=== PATIENT | male | born 1930 | race Caucasian/White ===

== ENCOUNTER 2018-03-03 09:09 | Inpatient (IN) | payer OTHER ==
[~2018-03-03] VITALS: Ht 172.7 cm; Wt 53.2 kg
[~2018-03-03 09:09] MED LIST: APRESOLINE50 MG PO; Apresoline PO; Catapres PO; DuoNeb IH; FOLIC ACID1 MG PO; Folvite PO; GLUCOTROL10 MG PO; Heparin Sodium SC; ISORDIL10 MG PO; LANTUS 3 M100 UNITS1 SC; LASIX20 MG PO; LASIX40 MG PO; LOPRESSOR50 MG PO; LOVASTATIN20 MG PO; Lasix PO; Levaquin PO; Lopressor PO; NEURONTIN100 MG PO; NORVASC10 MG PO; NORVASC5 MG PO; NOVOLOG PE100 UNITS/ SC; Neurontin PO; Norvasc PO; NovoLOG Pen 3 ml SC; PLAVIX75 MG PO; PRILOSEC20 MG PO; Plavix PO; Pravachol PO; Protonix PO; TYLENOL REGULA325 MG PO; VITAMIN B12-FO1 EACH PO; ZOLOFT25 MG PO; Zoloft PO
[2018-03-03 10:34] LABS: BASOPHIL (%) 0.3 % (0-1); EOSINOPHIL (%) 1.1 % (0-5); EOSINOPHIL COUNT 0.1 K/uL (0-0.3); HEMATOCRIT 30.4 % (38.0-50.0); HEMOGLOBIN 10.7 G/DL (12.5-16.6); IMMATURE GRANULOCYTE (%) 0.8 % (0.0-0.7); LYMPHOCYTE (%) 7.1 % (15-42); LYMPHOCYTE COUNT 0.8 K/uL (1.0-2.8); MCH 32.3 PG (29.0-34.0); MCHC 35.2 G/DL (30.0-36.0); MCV 91.8 FL (86-99); MONOCYTE (%) 4.9 % (3-12); MONOCYTE COUNT 0.6 K/uL (0-0.8); NEUTROPHIL (%) 85.8 % (45-76); NEUTROPHIL COUNT 9.7 K/uL (1.8-6.4); PLATELET COUNT 121 K/uL (156-360); RBC DIS.WIDTH-CV 12.2 % (11.8-14.6); RBC DIS.WIDTH-SD 41.2 % (39-53); RED BLOOD COUNT 3.31 M/uL (4.00-5.50); WHITE BLOOD COUNT 11.3 K/uL (4.1-10.2)
[2018-03-03 10:45] LABS: CHLORIDE 108 mEq/L (99-109); INTER. NORMALIZED RATIO 1.1; POTASSIUM 4.7 mEq/L (3.7-5.4); SODIUM 139 mEq/L (136-147)
[2018-03-03 10:47] LABS: GLUCOSE 324 mg/dL (70-99)
[2018-03-03 10:51] LABS: CREATININE 1.8 mg/dL (0.6-1.3); GFR ESTIMATE (CALCULATED) 38 mL/min/ (58.99-99999)
[2018-03-03 10:52] LABS: UREA NITROGEN (BUN) 37 mg/dL (9-23)
[2018-03-03] MEDS ORDERED: PRECOSE100 MG PO (16:30)
[2018-03-03] MEDS ORDERED: VITAMIN C500 M6 PO (16:31)
[2018-03-03] MEDS ORDERED: VITAMIN D31000 UNI2 PO (16:34)
[2018-03-03] MEDS ORDERED: CALCIUM 500 MG1 EACH PO (16:36)
[2018-03-03] MEDS ORDERED: ALPHAGAN 0100 DROP/5 LEFT EYE (16:38)
[2018-03-03] MEDS ORDERED: COLACE100 MG PO (16:42)
[2018-03-03] MEDS ORDERED: COSOPT PF EYE1 EACH LEFT EYE (16:46)
[2018-03-03] MEDS ORDERED: FERRETTS325 MG PO (16:47)
[2018-03-03] MEDS ORDERED: PROSCAR5 MG PO (16:50)
[2018-03-03] MEDS ORDERED: NEURONTIN300 MG PO (16:51)
[2018-03-03] MEDS ORDERED: IMDUR30 MG PO (16:54)
[2018-03-03] MEDS ORDERED: XALATAN2.5 ML LEFT EYE (16:55)
[2018-03-03] MEDS ORDERED: LEVO-T25 MCG PO (16:58)
[2018-03-03] MEDS ORDERED: LIDOCAINE HCL35 GM TP (17:03)
[2018-03-03] MEDS ORDERED: IMODIUM A-D2 M2 PO (17:09)
[2018-03-03] MEDS ORDERED: LOVASTATIN40 MG PO (17:10)
[2018-03-03] MEDS ORDERED: LOPRESSOR25 MG PO (17:11)
[2018-03-03] MEDS ORDERED: PROTONIX20 MG PO (17:13)
[2018-03-03] MEDS ORDERED: ZOLOFT50 MG PO (17:14)
[2018-03-03] MEDS ORDERED: FLOMAX0.4 MG PO (17:16)
[2018-03-03] MEDS ORDERED: NORVASC10 MG PO (17:17)
[2018-03-03] MEDS ORDERED: CATAPRES0.1 MG PO (17:18)
[2018-03-03] MEDS ORDERED: GLUCOTROL10 MG PO (17:25)
[2018-03-03 22:00] VITALS: BP 162/76
[2018-03-03 23:33] VITALS: BP 148/68
[2018-03-04 04:34] VITALS: BP 146/66
[2018-03-04 06:22] LABS: HEMOGLOBIN 9.5 G/DL (12.5-16.6); MCH 31.4 PG (29.0-34.0); MCHC 33.9 G/DL (30.0-36.0); MCV 92.4 FL (86-99); PLATELET COUNT 116 K/uL (156-360); RBC DIS.WIDTH-CV 12.7 % (11.8-14.6); RBC DIS.WIDTH-SD 42.5 % (39-53); RED BLOOD COUNT 3.03 M/uL (4.00-5.50); WHITE BLOOD COUNT 8.4 K/uL (4.1-10.2)
[2018-03-04 06:45] LABS: CHLORIDE 111 MEQ/L (99-109); CREATININE 1.6 MG/DL (0.6-1.3); GFR ESTIMATE (CALCULATED) 44 mL/min/ (58.99-99999); POTASSIUM 3.9 MEQ/L (3.7-5.4); SODIUM 145 MEQ/L (136-147); UREA NITROGEN (BUN) 30 mg/dL (9-23)
[2018-03-04 06:56] LABS: GLUCOSE 136 mg/dL (70-99)
[2018-03-04 08:13] VITALS: BP 153/71
[2018-03-04 12:24] VITALS: BP 157/74
[2018-03-04 16:20] VITALS: BP 132/70
[2018-03-04 19:34] VITALS: BP 131/60
[2018-03-04 23:24] VITALS: BP 114/56
[2018-03-05 07:12] LABS: HEMATOCRIT 28.1 % (38.0-50.0); HEMOGLOBIN 9.5 G/DL (12.5-16.6); MCH 31.9 PG (29.0-34.0); MCHC 33.8 G/DL (30.0-36.0); MCV 94.3 FL (86-99); PLATELET COUNT 117 K/uL (156-360); RBC DIS.WIDTH-CV 13.2 % (11.8-14.6); RBC DIS.WIDTH-SD 45.3 % (39-53); RED BLOOD COUNT 2.98 M/uL (4.00-5.50); WHITE BLOOD COUNT 9.2 K/uL (4.1-10.2)
[2018-03-05 07:42] LABS: CHLORIDE 112 MEQ/L (99-109); CREATININE 1.7 MG/DL (0.6-1.3); GFR ESTIMATE (CALCULATED) 41 mL/min/ (58.99-99999); GLUCOSE 173 mg/dL (70-99); POTASSIUM 4.2 MEQ/L (3.7-5.4); SODIUM 143 MEQ/L (136-147); UREA NITROGEN (BUN) 32 mg/dL (9-23)
[2018-03-05 08:20] VITALS: BP 136/67
[2018-03-05 16:02] VITALS: BP 133/62
[2018-03-06 00:03] VITALS: BP 150/66
[2018-03-06 07:25] LABS: HEMATOCRIT 25.9 % (38.0-50.0); HEMOGLOBIN 8.8 G/DL (12.5-16.6); MCH 32.4 PG (29.0-34.0); MCV 95.2 FL (86-99); PLATELET COUNT 125 K/uL (156-360); RBC DIS.WIDTH-CV 13.3 % (11.8-14.6); RBC DIS.WIDTH-SD 46.4 % (39-53); RED BLOOD COUNT 2.72 M/uL (4.00-5.50); WHITE BLOOD COUNT 9.1 K/uL (4.1-10.2)
[2018-03-06 07:52] VITALS: BP 136/70
[2018-03-06 16:13] VITALS: BP 1228/58
[2018-03-06 23:23] VITALS: BP 137/64
[2018-03-07 07:07] LABS: HEMATOCRIT 25.2 % (38.0-50.0); HEMOGLOBIN 8.5 G/DL (12.5-16.6); MCH 32.1 PG (29.0-34.0); MCHC 33.7 G/DL (30.0-36.0); MCV 95.1 FL (86-99); PLATELET COUNT 135 K/uL (156-360); RBC DIS.WIDTH-CV 13.2 % (11.8-14.6); RBC DIS.WIDTH-SD 45.6 % (39-53); RED BLOOD COUNT 2.65 M/uL (4.00-5.50); WHITE BLOOD COUNT 9.6 K/uL (4.1-10.2)
[2018-03-07 07:35] LABS: CHLORIDE 112 MEQ/L (99-109); POTASSIUM 4.1 MEQ/L (3.7-5.4); SODIUM 143 MEQ/L (136-147)
[2018-03-07 07:42] LABS: GFR ESTIMATE (CALCULATED) 34 mL/min/ (58.99-99999); UREA NITROGEN (BUN) 42 mg/dL (9-23)
[2018-03-07 07:44] LABS: GLUCOSE 63 mg/dL (70-99)
[2018-03-07 07:47] VITALS: BP 136/63
[2018-03-07 15:54] VITALS: BP 135/68
[2018-03-08 00:08] VITALS: BP 126/64
[2018-03-08 08:17] LABS: HEMATOCRIT 28.4 % (38.0-50.0); HEMOGLOBIN 9.5 G/DL (12.5-16.6); MCH 32.2 PG (29.0-34.0); MCHC 33.5 G/DL (30.0-36.0); MCV 96.3 FL (86-99); PLATELET COUNT 149 K/uL (156-360); RBC DIS.WIDTH-CV 13.2 % (11.8-14.6); RBC DIS.WIDTH-SD 46.5 % (39-53); RED BLOOD COUNT 2.95 M/uL (4.00-5.50); WHITE BLOOD COUNT 7.8 K/uL (4.1-10.2)
[2018-03-08 08:19] VITALS: BP 152/80
[2018-03-08 08:55] LABS: CHLORIDE 105 MEQ/L (99-109); CREATININE 2.2 MG/DL (0.6-1.3); GFR ESTIMATE (CALCULATED) 30 mL/min/ (58.99-99999); GLUCOSE 551 mg/dL (70-99); POTASSIUM 5.1 MEQ/L (3.7-5.4); SODIUM 138 MEQ/L (136-147); UREA NITROGEN (BUN) 49 mg/dL (9-23)
[2018-03-08 16:14] VITALS: BP 117/65
[2018-03-08 19:29] VITALS: BP 120/58
[2018-03-09 00:10] VITALS: BP 125/66
[2018-03-09 03:55] VITALS: BP 114/66
[2018-03-09 06:02] LABS: CHLORIDE 107 MEQ/L (99-109); CREATININE 2.4 MG/DL (0.6-1.3); GFR ESTIMATE (CALCULATED) 27 mL/min/ (58.99-99999); POTASSIUM 4.7 MEQ/L (3.7-5.4); SODIUM 141 MEQ/L (136-147); UREA NITROGEN (BUN) 60 mg/dL (9-23)
[2018-03-09 06:08] LABS: GLUCOSE 226 mg/dL (70-99)
[2018-03-09 08:48] VITALS: BP 127/84
[2018-03-09 11:22] VITALS: BP 131/71
[2018-03-09 12:23] LABS: HEMOGLOBIN A1c (GLYCOHEMOGLOB) 9.4 % (Below 5.7)
[2018-03-09 16:10] VITALS: BP 123/74
[2018-03-09 19:08] VITALS: BP 124/58
[2018-03-10] VITALS (10 sets, daily range): BP systolic 98–135; BP diastolic 50–78
[2018-03-10 08:35] LABS: COMMENTS - BLOOD GASES A+C+; DEVICE HHFNC; FI02 100 %; SITE RR; TOTAL RESP RATE 30 resp/min
[2018-03-10 08:36] LABS: BASE EXCESS -4.3 mEq/L (-3 to +3); BICARBONATE 19.8 mEq/L (22-26); CARBOXY HGB 0.6 % (0-5); METHEMOGLOBIN 0.2 % (0-1.5); PCO2 32 mm Hg (35-45); PO2 59 mm Hg (80-100)
[2018-03-10 10:04] LABS: HEMATOCRIT 28.6 % (38.0-50.0); HEMOGLOBIN 9.1 G/DL (12.5-16.6); MCH 31.9 PG (29.0-34.0); MCHC 31.8 G/DL (30.0-36.0); NRBC (%) 0.5 /100 WBC (0-0); RBC DIS.WIDTH-CV 13.8 % (11.8-14.6); RBC DIS.WIDTH-SD 49.3 % (39-53); RED BLOOD COUNT 2.85 M/uL (4.00-5.50); WHITE BLOOD COUNT 14.5 K/uL (4.1-10.2)
[2018-03-10 10:11] LABS: MCV 100.4 FL (86-99); PLATELET COUNT 194 K/uL (156-360)
[2018-03-10 10:24] LABS: CHLORIDE 109 MEQ/L (99-109); CREATININE 2.7 MG/DL (0.6-1.3); GFR ESTIMATE (CALCULATED) 24 mL/min/ (58.99-99999); GLUCOSE 136 mg/dL (70-99); SODIUM 143 MEQ/L (136-147); UREA NITROGEN (BUN) 71 mg/dL (9-23)
[2018-03-11] VITALS (22 sets, daily range): BP systolic 104–132; BP diastolic 55–78
[2018-03-11 05:48] LABS: BASOPHIL (%) 0.1 % (0-1); EOSINOPHIL (%) 0.1 % (0-5); HEMATOCRIT 25.5 % (38.0-50.0); HEMOGLOBIN 8.1 G/DL (12.5-16.6); IMMATURE GRANULOCYTE (%) 2.4 % (0.0-0.7); LYMPHOCYTE (%) 6.4 % (15-42); LYMPHOCYTE COUNT 0.6 K/uL (1.0-2.8); MCH 31.4 PG (29.0-34.0); MCHC 31.8 G/DL (30.0-36.0); MCV 98.8 FL (86-99); MONOCYTE (%) 5.1 % (3-12); MONOCYTE COUNT 0.5 K/uL (0-0.8); NEUTROPHIL (%) 85.9 % (45-76); NEUTROPHIL COUNT 8.4 K/uL (1.8-6.4); NRBC (%) 0.7 /100 WBC (0-0); PLATELET COUNT 177 K/uL (156-360); RBC DIS.WIDTH-CV 13.9 % (11.8-14.6); RBC DIS.WIDTH-SD 48.9 % (39-53); RED BLOOD COUNT 2.58 M/uL (4.00-5.50); WHITE BLOOD COUNT 9.8 K/uL (4.1-10.2)
[2018-03-11 06:21] LABS: ALBUMIN 2.9 G/DL (3.2-4.8); ALKALINE PHOSPHATASE 38 IU/L (3-129); ALT (GPT) 11 IU/L (3-49); AST (GOT) 14 IU/L (2-34); CHLORIDE 111 MEQ/L (99-109); CREATININE 2.6 MG/DL (0.6-1.3); GFR ESTIMATE (CALCULATED) 25 mL/min/ (58.99-99999); POTASSIUM 3.9 MEQ/L (3.7-5.4); SODIUM 146 MEQ/L (136-147); TOTAL BILIRUBIN 0.4 MG/DL (0.0-1.0); TOTAL PROTEIN 5.5 G/DL (6.4-8.3); UREA NITROGEN (BUN) 73 mg/dL (9-23)
[2018-03-11 06:26] LABS: GLUCOSE 79 mg/dL (70-99)
[2018-03-11 16:01] LABS: PCO2 32 mm Hg (35-45); PO2 61 mm Hg (80-100); pH 7.42 (7.35-7.45)
[2018-03-11 16:02] LABS: BASE EXCESS -3.2 mEq/L (-3 to +3); BICARBONATE 20.8 mEq/L (22-26); CARBOXY HGB 0.7 % (0-5); COMMENTS - BLOOD GASES A+C+; DEVICE N/V 840; FI02 70 %; METHEMOGLOBIN 0.6 % (0-1.5); MODE SPONT; PEEP 8 CM/H20; PRES. SUPPORT 10 CM/H2O; SITE RR; TOTAL RESP RATE 25 resp/min
[2018-03-12] VITALS (24 sets, daily range): BP systolic 115–152; BP diastolic 58–77
[2018-03-12 05:01] LABS: BASOPHIL (%) 0.2 % (0-1); EOSINOPHIL (%) 0 % (0-5); HEMATOCRIT 27.7 % (38.0-50.0); HEMOGLOBIN 9.2 G/DL (12.5-16.6); IMMATURE GRANULOCYTE (%) 3.1 % (0.0-0.7); LYMPHOCYTE (%) 3.9 % (15-42); LYMPHOCYTE COUNT 0.4 K/uL (1.0-2.8); MCH 32.5 PG (29.0-34.0); MCHC 33.2 G/DL (30.0-36.0); MCV 97.9 FL (86-99); MONOCYTE COUNT 0.2 K/uL (0-0.8); NEUTROPHIL (%) 90.8 % (45-76); NEUTROPHIL COUNT 9.5 K/uL (1.8-6.4); NRBC (%) 0.3 /100 WBC (0-0); PLATELET COUNT 209 K/uL (156-360); RBC DIS.WIDTH-SD 49.1 % (39-53); RED BLOOD COUNT 2.83 M/uL (4.00-5.50); WHITE BLOOD COUNT 10.4 K/uL (4.1-10.2)
[2018-03-12 05:23] LABS: CHLORIDE 116 mEq/L (99-109); POTASSIUM 3.9 mEq/L (3.7-5.4); SODIUM 147 mEq/L (136-147)
[2018-03-12 05:24] LABS: MAGNESIUM 1.9 mg/dL (1.3-2.7)
[2018-03-12 05:25] LABS: GLUCOSE 64 mg/dL (70-99)
[2018-03-12 05:29] LABS: CREATININE 2.5 mg/dL (0.6-1.3); GFR ESTIMATE (CALCULATED) 26 mL/min/ (58.99-99999); PHOSPHORUS 5.1 mg/dL (2.5-4.9)
[2018-03-12 05:30] LABS: UREA NITROGEN (BUN) 80 mg/dL (9-23)
[2018-03-13] VITALS (24 sets, daily range): BP systolic 121–151; BP diastolic 55–81
[2018-03-13 08:56] LABS: BASOPHIL (%) 0.1 % (0-1); EOSINOPHIL (%) 0 % (0-5); HEMATOCRIT 30.7 % (38.0-50.0); IMMATURE GRANULOCYTE (%) 2.1 % (0.0-0.7); LYMPHOCYTE (%) 2.8 % (15-42); LYMPHOCYTE COUNT 0.4 K/uL (1.0-2.8); MCH 32.3 PG (29.0-34.0); MCHC 32.6 G/DL (30.0-36.0); MONOCYTE (%) 3.7 % (3-12); MONOCYTE COUNT 0.5 K/uL (0-0.8); NEUTROPHIL (%) 91.3 % (45-76); NEUTROPHIL COUNT 12.9 K/uL (1.8-6.4); NRBC (%) 0.2 /100 WBC (0-0); PLATELET COUNT 246 K/uL (156-360); RBC DIS.WIDTH-CV 14.6 % (11.8-14.6); RBC DIS.WIDTH-SD 50.4 % (39-53); WHITE BLOOD COUNT 14.1 K/uL (4.1-10.2)
[2018-03-13 09:41] LABS: CHLORIDE 116 MEQ/L (99-109); CREATININE 2.6 MG/DL (0.6-1.3); GFR ESTIMATE (CALCULATED) 25 mL/min/ (58.99-99999); MAGNESIUM 2.2 mg/dl (1.3-2.7); PHOSPHORUS 5.4 mg/dL (2.5-4.9); POTASSIUM 3.7 MEQ/L (3.7-5.4); SODIUM 151 MEQ/L (136-147); UREA NITROGEN (BUN) 94 mg/dL (9-23)
[2018-03-13 09:50] LABS: GLUCOSE 287 mg/dL (70-99)
[2018-03-14] VITALS (22 sets, daily range): BP systolic 126–165; BP diastolic 56–80
[2018-03-14 05:41] LABS: BASOPHIL (%) 0.1 % (0-1); EOSINOPHIL (%) 0 % (0-5); HEMATOCRIT 30.3 % (38.0-50.0); HEMOGLOBIN 9.7 G/DL (12.5-16.6); IMMATURE GRANULOCYTE (%) 2.1 % (0.0-0.7); LYMPHOCYTE (%) 2.2 % (15-42); LYMPHOCYTE COUNT 0.3 K/uL (1.0-2.8); MCH 32.6 PG (29.0-34.0); MCV 101.7 FL (86-99); MONOCYTE (%) 3.3 % (3-12); MONOCYTE COUNT 0.5 K/uL (0-0.8); NEUTROPHIL (%) 92.3 % (45-76); NEUTROPHIL COUNT 12.6 K/uL (1.8-6.4); NRBC (%) 0.3 /100 WBC (0-0); PLATELET COUNT 256 K/uL (156-360); RBC DIS.WIDTH-CV 14.7 % (11.8-14.6); RBC DIS.WIDTH-SD 52.2 % (39-53); RED BLOOD COUNT 2.98 M/uL (4.00-5.50); WHITE BLOOD COUNT 13.7 K/uL (4.1-10.2)
[2018-03-14 06:06] LABS: CHLORIDE 115 MEQ/L (99-109); CREATININE 2.6 MG/DL (0.6-1.3); GFR ESTIMATE (CALCULATED) 25 mL/min/ (58.99-99999); GLUCOSE 262 mg/dL (70-99); MAGNESIUM 2.2 mg/dl (1.3-2.7); PHOSPHORUS 4.9 mg/dL (2.5-4.9); POTASSIUM 3.5 MEQ/L (3.7-5.4); SODIUM 150 MEQ/L (136-147); UREA NITROGEN (BUN) 97 mg/dL (9-23)
[2018-03-14 10:31] LABS: C DIFF TOXIN NEGATIVE (NEGATIVE)
[2018-03-15] VITALS (18 sets, daily range): BP systolic 129–172; BP diastolic 64–100
[2018-03-15 05:39] LABS: CHLORIDE 116 MEQ/L (99-109); CREATININE 2.3 MG/DL (0.6-1.3); GFR ESTIMATE (CALCULATED) 29 mL/min/ (58.99-99999); GLUCOSE 209 mg/dL (70-99); POTASSIUM 3.2 MEQ/L (3.7-5.4); SODIUM 152 MEQ/L (136-147); UREA NITROGEN (BUN) 94 mg/dL (9-23)
[2018-03-15 07:07] LABS: BASOPHIL (%) 0.3 % (0-1); EOSINOPHIL (%) 1.5 % (0-5); EOSINOPHIL COUNT 0.2 K/uL (0-0.3); HEMATOCRIT 34.3 % (38.0-50.0); HEMOGLOBIN 11.5 G/DL (12.5-16.6); LYMPHOCYTE (%) 5.9 % (15-42); LYMPHOCYTE COUNT 0.9 K/uL (1.0-2.8); MCH 32.9 PG (29.0-34.0); MCHC 33.5 G/DL (30.0-36.0); MONOCYTE (%) 4.2 % (3-12); MONOCYTE COUNT 0.6 K/uL (0-0.8); NEUTROPHIL (%) 84.1 % (45-76); NEUTROPHIL COUNT 12.5 K/uL (1.8-6.4); NRBC (%) 0.5 /100 WBC (0-0); PLATELET COUNT 238 K/uL (156-360); RBC DIS.WIDTH-CV 14.9 % (11.8-14.6); WHITE BLOOD COUNT 14.8 K/uL (4.1-10.2)
[2018-03-16] VITALS (7 sets, daily range): BP systolic 143–205; BP diastolic 64–91
[2018-03-16 09:44] LABS: HEMATOCRIT 35.5 % (38.0-50.0); HEMOGLOBIN 12.1 G/DL (12.5-16.6); MCH 32.7 PG (29.0-34.0); MCHC 34.1 G/DL (30.0-36.0); MCV 95.9 FL (86-99); NRBC (%) 0.2 /100 WBC (0-0); PLATELET COUNT 247 K/uL (156-360); RBC DIS.WIDTH-SD 51.3 % (39-53); WHITE BLOOD COUNT 15.7 K/uL (4.1-10.2)
[2018-03-16 10:08] LABS: ALBUMIN 3.3 G/DL (3.2-4.8); ALKALINE PHOSPHATASE 44 IU/L (3-129); ALT (GPT) 11 IU/L (3-49); AST (GOT) 16 IU/L (2-34); CHLORIDE 113 MEQ/L (99-109); CREATININE 1.9 MG/DL (0.6-1.3); GFR ESTIMATE (CALCULATED) 36 mL/min/ (58.99-99999); GLUCOSE 180 mg/dL (70-99); POTASSIUM 3.4 MEQ/L (3.7-5.4); SODIUM 152 MEQ/L (136-147); TOTAL PROTEIN 5.7 G/DL (6.4-8.3); UREA NITROGEN (BUN) 90 mg/dL (9-23)
[2018-03-16 10:12] LABS: TOTAL BILIRUBIN 0.6 MG/DL (0.0-1.0)
[2018-03-17] VITALS (7 sets, daily range): BP systolic 113–199; BP diastolic 58–94
[2018-03-17 05:45] LABS: ABSOLUTE RETICULOCYTE CT. 0.15 M/uL (0.02-0.08); BASOPHIL (%) 0.2 % (0-1); EOSINOPHIL (%) 1.9 % (0-5); EOSINOPHIL COUNT 0.3 K/uL (0-0.3); HEMATOCRIT 34.8 % (38.0-50.0); HEMOGLOBIN 11.4 G/DL (12.5-16.6); IMM.RETIC FRACTION 18.4 % (3-19); IMMATURE GRANULOCYTE (%) 2.2 % (0.0-0.7); LYMPHOCYTE (%) 6.8 % (15-42); LYMPHOCYTE COUNT 1.2 K/uL (1.0-2.8); MCH 31.7 PG (29.0-34.0); MCHC 32.8 G/DL (30.0-36.0); MCV 96.7 FL (86-99); MONOCYTE COUNT 0.9 K/uL (0-0.8); NEUTROPHIL (%) 83.9 % (45-76); NRBC (%) 0.2 /100 WBC (0-0); PLATELET COUNT 225 K/uL (156-360); RBC DIS.WIDTH-CV 14.7 % (11.8-14.6); RBC DIS.WIDTH-SD 50.9 % (39-53); RETIC HGB EQUIVALENT 36.7 (28-36); RETICULOCYTE COUNT 4.2 % (0.5-1.8); WHITE BLOOD COUNT 17.9 K/uL (4.1-10.2)
[2018-03-17 06:35] LABS: CHLORIDE 109 MEQ/L (99-109); GFR ESTIMATE (CALCULATED) 34 mL/min/ (58.99-99999); GLUCOSE 135 mg/dL (70-99); IRON 65 MCG/DL (35-150); POTASSIUM 3.3 MEQ/L (3.7-5.4); SODIUM 149 MEQ/L (136-147); TRANSFERRIN (TIBC) 120.1 mg/dL (215-380); TRANSFERRIN SATUR. 54 % (20-55); UREA NITROGEN (BUN) 88 mg/dL (9-23)
[2018-03-17 08:19] LABS: MAGNESIUM 1.9 mg/dl (1.3-2.7)
[2018-03-17 08:20] LABS: FERRITIN > 1500 NG/ML (22-322)
[2018-03-18 04:25] VITALS: BP 158/70
[2018-03-18 08:00] VITALS: BP 160/70
[2018-03-18 09:43] LABS: HEMATOCRIT 34.6 % (38.0-50.0); HEMOGLOBIN 11.5 G/DL (12.5-16.6); MCH 32.4 PG (29.0-34.0); MCHC 33.2 G/DL (30.0-36.0); MCV 97.5 FL (86-99); PLATELET COUNT 183 K/uL (156-360); RBC DIS.WIDTH-CV 14.6 % (11.8-14.6); RBC DIS.WIDTH-SD 51.7 % (39-53); RED BLOOD COUNT 3.55 M/uL (4.00-5.50)
[2018-03-18 10:14] LABS: CHLORIDE 110 MEQ/L (99-109); CREATININE 1.6 MG/DL (0.6-1.3); GFR ESTIMATE (CALCULATED) 44 mL/min/ (58.99-99999); POTASSIUM 3.8 MEQ/L (3.7-5.4); SODIUM 143 MEQ/L (136-147); UREA NITROGEN (BUN) 75 mg/dL (9-23)
[2018-03-18 10:19] LABS: GLUCOSE 306 mg/dL (70-99)
[2018-03-18 17:08] VITALS: BP 168/72
[2018-03-18 21:00] VITALS: BP 149/85
[2018-03-18 23:53] VITALS: BP 132/74
[2018-03-19 04:59] VITALS: BP 128/78
[2018-03-19 06:48] LABS: CHLORIDE 112 MEQ/L (99-109); CREATININE 1.7 MG/DL (0.6-1.3); GFR ESTIMATE (CALCULATED) 41 mL/min/ (58.99-99999); GLUCOSE 132 mg/dL (70-99); POTASSIUM 3.9 MEQ/L (3.7-5.4); SODIUM 143 MEQ/L (136-147); UREA NITROGEN (BUN) 70 mg/dL (9-23)
[2018-03-19 08:00] VITALS: BP 175/84
[2018-03-19 11:56] VITALS: BP 140/65
[2018-03-19 16:18] VITALS: BP 186/85
[2018-03-19 19:15] VITALS: BP 153/66
[2018-03-20] VITALS (7 sets, daily range): BP systolic 135–190; BP diastolic 61–88
[2018-03-20 06:28] LABS: CHLORIDE 110 MEQ/L (99-109); CREATININE 1.7 MG/DL (0.6-1.3); GFR ESTIMATE (CALCULATED) 41 mL/min/ (58.99-99999); POTASSIUM 4.4 MEQ/L (3.7-5.4); SODIUM 145 MEQ/L (136-147); UREA NITROGEN (BUN) 63 mg/dL (9-23)
[2018-03-20 06:37] LABS: GLUCOSE 280 mg/dL (70-99)
[2018-03-21 04:30] VITALS: BP 206/93
[2018-03-21 04:51] VITALS: BP 103/54
[2018-03-21 05:36] LABS: HEMATOCRIT 31.1 % (38.0-50.0); MCH 31.9 PG (29.0-34.0); MCHC 32.2 G/DL (30.0-36.0); MCV 99.4 FL (86-99); PLATELET COUNT 163 K/uL (156-360); RBC DIS.WIDTH-CV 14.9 % (11.8-14.6); RBC DIS.WIDTH-SD 53.5 % (39-53); RED BLOOD COUNT 3.13 M/uL (4.00-5.50); WHITE BLOOD COUNT 14.7 K/uL (4.1-10.2)
[2018-03-21 07:15] VITALS: BP 144/77
[2018-03-21 11:19] VITALS: BP 142/84
[2018-03-21] MEDS ORDERED: DUONEB 2.5-0.5 M3 ML AEROSOL (12:46)
[2018-03-21] MEDS ORDERED: MIRTAZAPINE15 MG PO (12:47)
[2018-03-21] MEDS ORDERED: FUROSEMIDE40 MG PO (12:47)
[2018-03-21] MEDS ORDERED: K-DUR20 MEQ PO (12:47)
[2018-03-21] MEDS ORDERED: Zeasorb Antifungal T TP (12:49)
[2018-03-21] MEDS ORDERED: LEVEMIR100 UNIT/2 SC (12:50)
== END 2018-03-21 17:37 | DRG 480 ==
LOC: EME 09:09 → EDOF 13:57 → 3EAST 13:57 → ENRESERV 13:58 → 3EAST 21:37 → ENRESERV 03-08 23:31 → 4EAST 03-09 00:06 → ENRESERV 03-10 16:57 → 4WEST 03-10 17:00 → ENRESERV 03-10 17:26 → 4WEST 03-10 17:38 → ENRESERV 03-15 13:07 → 4EAST 03-15 14:46 → ENRESERV 03-20 15:52 → CANRESERV 03-20 15:52 → ENPENDDIS 03-21 17:00 → 4EAST 03-21 17:37
PROVIDERS: Emergency Medicine; Hospitalist; Internal Medicine; Orthopaedic Surgery; Specialist
PROC: 0QH704Z Insertion of Internal Fixation Device into Left Upper Femur, Open Approach (ICD-10-PCS; principal; 2018-03-03)
PROC: 5A09357 Assistance with Respiratory Ventilation, Less than 24 Consecutive Hours, Continuous Positive Airway Pressure (ICD-10-PCS; 2018-03-10)
DX: S72.002A Fracture of unspecified part of neck of left femur, initial encounter for closed fracture (principal); W05.0XXA Fall from non-moving wheelchair, initial encounter; Y92.009 Unspecified place in unspecified non-institutional (private) residence as the place of occurrence of the external cause; J96.01 Acute respiratory failure with hypoxia; J69.0 Pneumonitis due to inhalation of food and vomit; N17.0 Acute kidney failure with tubular necrosis; E86.0 Dehydration; E87.0 Hyperosmolality and hypernatremia; E87.6 Hypokalemia; T50.2X5A Adverse effect of carbonic-anhydrase inhibitors, benzothiadiazides and other diuretics, initial encounter; I13.0 Hypertensive heart and chronic kidney disease with heart failure and stage 1 through stage 4 chronic kidney disease, or unspecified chronic kidney disease; N18.3 Chronic kidney disease, stage 3 (moderate); I50.22 Chronic systolic (congestive) heart failure; E11.22 Type 2 diabetes mellitus with diabetic chronic kidney disease; I42.0 Dilated cardiomyopathy; I08.1 Rheumatic disorders of both mitral and tricuspid valves; I27.20 Pulmonary hypertension, unspecified; I25.5 Ischemic cardiomyopathy; R13.10 Dysphagia, unspecified; D64.9 Anemia, unspecified; I69.354 Hemiplegia and hemiparesis following cerebral infarction affecting left non-dominant side; E11.51 Type 2 diabetes mellitus with diabetic peripheral angiopathy without gangrene; E03.9 Hypothyroidism, unspecified; E78.5 Hyperlipidemia, unspecified; F03.90 Unspecified dementia, unspecified severity, without behavioral disturbance, psychotic disturbance, mood disturbance, and anxiety; F32.9 Major depressive disorder, single episode, unspecified; I48.91 Unspecified atrial fibrillation; R32 Unspecified urinary incontinence; Z66 Do not resuscitate; Z79.02 Long term (current) use of antithrombotics/antiplatelets; Z99.3 Dependence on wheelchair; Z74.01 Bed confinement status
CPT/HCPCS: 36600; 70450; 71045; 71250; 73502; 73700; 74230; 76000; 76770; 78580; 80048; 80053; 80202; 81003; 82436; 82570; 82607; 82728; 82746; 82948; 83036; 83540; 83735; 83880; 84100; 84145 90; 84156; 84300; 84466; 84540; 85014; 85018; 85025; 85027; 85046; 85610; 86335; 87070; 87205; 87493; 87641; 92526 GN; 92610 GN; 92611 GN; 93005; 93306; 93970; 94002; 94003; 94640; 94760; 94799; 97530 GO; 97530 GP; 99281; 99285; A6214; A9540; C1713; J0690; J1100; J1644; J1815; J1940; J2270; J2405; J2543; J2710; J2920; J2930; J3010; J3370; J3475; J7030; J7042; J7050; J7070; J7512; J7643; S0028